=== PATIENT | female | born 1995 ===

== ENCOUNTER 2017-02-15 04:59 | Emergency (ER) | payer OTHER ==
[2017-02-15 05:06] VITALS: RESP 18; TEMP 99.7; O2SAT 98
[2017-02-15] MEDS ORDERED: NS 1,000 ML IV ONE (05:24)
[2017-02-15] MEDS ORDERED: FAMOTIDINE 20 MG/NACL 50 ML IV ONE (05:38)
[2017-02-15] MEDS ORDERED: ONDANSETRON 4 MG/2 ML VIAL IVP ONE (05:38)
[2017-02-15 05:45] LABS: PLATELET COUNT 291 10^3/uL (150-400)
[2017-02-15 06:19] VITALS: BP 95/67; PULSE 105
--- NOTE | 2017-02-15 06:26 | EDPHY ---
H & P Stated Complaint: nause vomiting and diarrhea after pizza tonight Time Seen by Provider: 02/15/17 05:18 HPI/ROS: HPI The patient presents brought in by a friend for nausea and vomiting which began several hours ago. She ate pizza for dinner and then about 1 hr later was lying in bed and had diffuse abdominal pain. Then she began to vomit and had multiple episodes of nonbloody nonbilious emesis. She had 1 episode of watery diarrhea. She has not had a fever.. REVIEW OF SYSTEMS Constitutional: No fever, no chills. Eyes: No discharge. ENT: No sore throat. Cardiovascular: No chest pain, no palpitations. Respiratory: No cough, no shortness of breath. Gastrointestinal: See HPI Genitourinary: No hematuria. Musculoskeletal: No back pain. Skin: No rashes. Neurological: No headache. PMHx: Healthy Soc Hx: Student PHYSICAL General Appearance: Alert, no distress Eyes: Pupils equal and round no pallor or injection ENT, Mouth: Mucous membranes dry Respiratory: There are no retractions, lungs are clear to auscultation Cardiovascular: Tachycardic rate and regular rhythm Gastrointestinal: Abdomen is soft and non-tender, no masses, bowel sounds normal Neurological: A&O, moves all extremities Skin: Warm and dry, no rashes Musculoskeletal: Neck is supple non tender Extremities: symmetrical, full range of motion Psychiatric: Patient is oriented X 3, there is no agitation Source: Patient Exam Limitations: No limitations - Personal History LMP (Females 10-55): 22-28 Days Ago Current Tetanus/Diphtheria Vaccine: Yes Current Tetanus Diphtheria and Acellular Pertussis (TDAP): Yes - Medical/Surgical History Hx Asthma: No Hx Chronic Respiratory Disease: No Hx Diabetes: No Hx Cardiac Disease: No Hx Renal Disease: No Hx Cirrhosis: No Hx Alcoholism: No Hx HIV/AIDS: No Hx Splenectomy or Spleen Trauma: No Other PMH: denies - Social History Smoking Status: Never smoked Constitutional: Initial Vital Signs Temperature (C) 37.6 C 02/15/17 05:03 Heart Rate 135 H 02/15/17 05:03 Respiratory Rate 18 02/15/17 05:03 Blood Pressure 122/71 H 02/15/17 05:03 O2 Sat (%) 98 02/15/17 05:03 O2 Delivery Mode Room Air Allergies/Adverse Reactions: latex Allergy (Verified 02/15/17 05:06) Home Medications: Medication Instructions Recorded Loperamide HCl [Loperamide] 2 mg PO Q2H PRN #20 capsule 02/15/17 Ondansetron Odt [Zofran Odt 4 mg 4 mg PO Q4 PRN #10 tab 02/15/17 (*)] Medical Decision Making Differential Diagnosis: 21-year-old healthy female presents with nausea, vomiting, diarrhea for the last several hours. On exam, she is tachycardic, has dry mucous membranes, has a benign abdominal exam. Differential diagnosis includes viral gastroenteritis, toxin mediated enterocolitis, less likely appendicitis. In the emergency department, patient was given IV fluids and antiemetics with improvement in her symptoms. Labs were checked and did reveal a mild acidosis. The patient was able to tolerate fluids and will be discharged home with antiemetics. She is in agreement with this plan. - Data Points Laboratory Results: Laboratory Results 02/15/17 05:20 02/15/17 05:20 Medications Given: Discontinued Medications Sodium Chloride (Ns) 1,000 mls @ 0 mls/hr IV ONCE ONE PRN Reason: Wide Open Stop: 02/15/17 05:25 Last Admin: 02/15/17 05:25 Dose: 1,000 mls Famotidine/Sodium Chloride (Pepcid 20 Mg (Premix)) 50 mls @ 200 mls/hr IV EDNOW ONE Stop: 02/15/17 05:52 Last Admin: 02/15/17 05:46 Dose: 50 mls Ondansetron HCl (Zofran) 4 mg IVP EDNOW ONE Stop: 02/15/17 05:39 Last Admin: 02/15/17 05:43 Dose: 4 mg Ondansetron HCl (Zofran Odt 4 Mg Prepack#2) 1 btl TAKEHOME EDNOW ONE Stop: 02/15/17 06:28 Last Admin: 02/15/17 06:33 Dose: 1 btl Departure - Departure Disposition: Home, Routine, Self-Care Clinical Impression: Nausea vomiting and diarrhea Condition: Good Instructions: Ondansetron (By mouth), Dehydration (ED), Acute Nausea and Vomiting (ED) Additional Instructions: Please return to the ER if you are worse in any way. Referrals: [facility] [Clinic] - As per Instructions Prescriptions: Loperamide HCl [Loperamide] 2 mg PO Q2H PRN #20 capsule PRN Reason: Diarrhea/Loose Stools Ondansetron Odt [Zofran Odt 4 mg (*)] 4 mg PO Q4 PRN #10 tab PRN Reason: Nausea/Vomiting, Can'T Take Po
[2017-02-15] MEDS ORDERED: ONDANSETRON 4MG PREPACK#2 BTL TAKEHOME ONE (06:27)
== END 2017-02-15 06:43 | disposition home or self-care (01) ==
DX: R11.2 Nausea with vomiting, unspecified (principal); R19.7 Diarrhea, unspecified
CPT/HCPCS: 96374; J2405